=== PATIENT | female | born 1995 | race Caucasian/White ===

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

== ENCOUNTER 2017-06-30 14:42 | Emergency (ER) | payer OTHER ==
[~2017-06-30] VITALS: Ht 170.2 cm; Wt 102.1 kg
[~2017-06-30 14:42] MED LIST changes: +CIPRODEX OTIC7.5 ML OT; +MULTI-DAY VITA1 EACH PO; +NEXPLANON68 M1
[2017-06-30 15:14] LABS: ABSOLUTE BASOPHIL COUNT 0 /CUMM (0.0-0.2); ABSOLUTE EOSINOPHIL COUNT 0 /CUMM (0.0-0.7); ABSOLUTE GRANULOCYTE CT 4.1 /CUMM (1.4-6.5); ABSOLUTE LYMPH COUNT 0.5 /CUMM (1.2-3.4); ABSOLUTE MONOCYTE COUNT 0.4 /CUMM (0.10-0.60); BASOPHIL % 0.2 % (0.0-2.0); EOSINOPHIL % 0.1 % (0-5); GRANULOCYTE % 81.1 % (42.2-75.2); HEMATOCRIT 40.1 % (37-47); MEAN CORPUSCULAR HGB 29.6 PG (27.0-31.0); MEAN CORPUSCULAR HGB CONC 34.2 G/DL (33.0-37.0); MEAN CORPUSCULAR VOLUME 86.5 FL (81.0-99.0); MEAN PLATELET VOLUME 7.2 FL (7.4-10.4); PLATELET COUNT 207 /CUMM (130-400); RBC DISTRIBUTION WIDTH 13.5 % (11.5-14.5); RED BLOOD CELL CT 4.64 /CUMM (4.20-5.40)
--- NOTE | 2017-06-30 19:04 | ED GENERAL ADULT ---
History of Present Illness General Chief Complaint: General Adult Stated Complaint: RIGHT SIDE OF BODY PAIN, NKI Source: patient Exam Limitations: no limitations Vital Signs & Intake/Output Vital Signs & Intake/Output Vital Signs Date Time Temp Pulse Resp B/P B/P Pulse O2 O2 Flow FiO2 Mean Ox Delivery Rate 06/30 2120 55 18 111/67 98 Room Air 06/30 1852 Room Air 06/30 1850 98.9 61 17 117/56 99 Room Air 06/30 1459 99.2 111 18 157/98 98 Room Air Allergies Coded Allergies: azithromycin (HIVES 10/17/16) codeine (HIVES 10/17/16) shellfish derived (HIVES, ITCHY, TINGLING IN MOUTH 06/30/17) Reconcile Medications Naproxen (Naprosyn) 500 MG TABLET 1 TAB PO BID PRN pain take with food Norethindrone-E.estradiol-Iron (Lo Loestrin Fe 1-10 Tablet) 1MG-10(24) TABLET 1 TAB PO DAILY CONTROL (Reported) Ondansetron (Zofran Odt) 4 MG TAB.RAPDIS 1 TAB SL TID PRN nausea Triage Note: 21 YO FEMALE TO TRIAGE C/O R SIDED LOWER ABD PAIN AND CHEST PAIN THAT HAS BEEN ON/OFF SINCE LAST PM. +NAUSEA. Triage Nurses Notes Reviewed? yes Onset: Abrupt Duration: day(s): (2), changing over time, continues in ED Timing: single episode today Injury Environment: home Severity: mild, moderate Severity Numbers: 6 No Modifying Factors: none Associated Symptoms: chest pain LMP (ages 10-50): unknown : No Patient currently breastfeeds: No HPI: 21-year-old female past medical history of asthma presents for evaluation of chest pain, shortness of breath and abdominal pain. Patient reports she first noticed the symptoms yesterday. The pain is located in the right side of her chest and right side of her abdomen and does not radiate. She reports some mild shortness of breath. She rates the pain as a 6 out of 10 and describes it as sharp. It is been intermittent today coming and going. She is unsure what brings it on. She's never had this before. She also reports associated nausea. No diarrhea back pain fever urinary symptoms vaginal discharge or any other symptoms. No recent surgery or trauma. She does take control. No smoking or drug use. (Taye Orta) Past History Travel History Traveled to [place] past 21 day No Medical History Any Pertinent Medical History? see below for history Neurological: NONE EENT: NONE Cardiovascular: NONE Respiratory: asthma Gastrointestinal: NONE Hepatic: NONE Renal: uti Musculoskeletal: NONE Psychiatric: NONE Endocrine: NONE Surgical History Surgical History: none Psychosocial History What is your primary language Ukrainian Tobacco Use: Never used Family History Hx Contributory? No (Taye Orta) Review of Systems Review of Systems Constitutional: Reports: no symptoms. EENTM: Reports: no symptoms. Respiratory: Reports: see HPI, short of breath. Cardiovascular: Reports: see HPI, chest pain. GI: Reports: see HPI, abdominal pain. Genitourinary: Reports: no symptoms. Musculoskeletal: Reports: no symptoms. Skin: Reports: no symptoms. Neurological/Psychological: Reports: no symptoms. Hematologic/Endocrine: Reports: no symptoms. Immunologic/Allergic: Reports: no symptoms. All Other Systems: Reviewed and Negative (Taye Orta) Physical Exam Physical Exam General Appearance: well developed/nourished, no apparent distress, alert, awake Head: atraumatic, normal appearance Eyes: Bilateral: normal appearance, PERRL, EOMI. Ears, Nose, Throat: normal pharynx, normal ENT inspection, hearing grossly normal Neck: normal inspection, supple, full range of motion Respiratory: normal breath sounds, chest non-tender, no respiratory distress, lungs clear Cardiovascular: regular rate/rhythm, normal peripheral pulses Peripheral Pulses: 2+ radial (R), 2+ radial (L) Gastrointestinal: normal bowel sounds, soft, no organomegaly, tenderness (RLQ TENDERNESS ) Back: normal inspection, no vertebral tenderness Extremities: normal inspection, normal range of motion, no edema Neurologic/Psych: no motor/sensory deficits, awake, alert, oriented x 3 Skin: intact, normal color, warm/dry Core Measures ACS in differential dx? No CVA/TIA Diagnosis: No Sepsis Present: No Sepsis Focused Exam Completed? No (Taye Orta) Progress Differential Diagnoses I considered the following diagnoses in my evaluation of the patient: [Pneumonia , pulmonary embolism, appendicitis, UTI, cholecystitis, muscle strain, arrhythmia] Plan of Care: Orders Procedure Date/time Status Add-on Test (ER Only) 06/30 190 Active Add-on Test (ER Only) 01/17 1840 Active URINE 01/17 1840 Complete URINALYSIS 06/30 1840 Complete TROPONIN LEVEL 06/30 1505 Complete LIPASE 06/30 1505 Complete D-DIMER 06/30 1505 Complete COMPREHENSIVE METABOLIC PANEL 06/30 1500 Complete CBC WITHOUT DIFFERENTIAL 06/30 1500 Complete EKG 06/30 1500 Active Laboratory Tests 06/30/17 1505: Anion Gap 16, Estimated GFR > 60, BUN/Creatinine Ratio 17.5, Glucose 90, Calcium 9.3, Total Bilirubin 0.5, AST 23, ALT 37, Alkaline Phosphatase 79, Troponin I < 0.01, Total Protein 7.6, Albumin 4.3, Globulin 3.3, Albumin/Globulin Ratio 1.3, Lipase 77, D-Dimer High Sensitivty 518 H, CBC w Diff NO MAN DIFF REQ, RBC 4.64, MCV 86.5, MCH 29.6, RDW 13.5, MPV 7.2 L, Gran % 81.1 H, Lymphocytes % 10.9 L, Monocytes % 7.7, Eosinophils % 0.1, Basophils % 0.2, Absolute Granulocytes 4.1, Absolute Lymphocytes 0.5 L, Absolute Monocytes 0.4, Absolute Eosinophils 0, Absolute Basophils 0, PUBS MCHC 34.2 06/30/17 1144: Urinalysis LIGHT H, Urine Color YEL, Urine Clarity HAZY H, Urine pH 6.0, Ur Specific [place] 1.020, Urine Protein NEG, Urine Ketones NEG, Urine Nitrite NEG, Urine Bilirubin NEG, Urine Urobilinogen 0.2, Ur Leukocyte Esterase NEG, Ur Microscopic SEDIMENT EXAMINED, Urine RBC 1-3, Urine WBC 1-3 H, Ur Epithelial Cells MOD H, Urine Bacteria MOD H, Urine Mucus MOD H, Urine Hemoglobin TRACE- INTACT, Urine Glucose NEG, Urine Test NEGATIVE Patient seen and evaluated. She is nontoxic-appearing. She is tachycardic and on control she cannot be ruled out for PE based on clinical criteria. Her EKG is normal sinus rhythm troponin is negative her d-dimer is slightly elevated. CTA of the chest and pelvis is negative for any acute findings. Patient is feeling better after Toradol and Zofran. She is able tolerate fluids here. Remaining blood work is unremarkable. Advised patient to rest and plenty of fluids naproxen Tylenol as needed for pain. Zofran for nausea. Follow-up with primary care doctor as soon as possible. Patient is nontoxic-appearing and agrees the plan. Diagnostic Imaging: Viewed by Me: CT Scan. Discussed w/RAD: CT Scan. Radiology Impression: PATIENT: MOISES ADKINS PRESENT AGE: 21 PATIENT ACCOUNT NO: [id number] : 97 LOCATION: [facility] ORDERING PHYSICIAN: Taye MARCOS SERVICE DATE: 06/30/17 EXAM TYPE: CAT - CT ABD & PELVIS ANGIOGRAM; CTA CHEST-PULMONARY EMBOLISM EXAMINATION: 1. CTA chest: 2. CT ABDOMEN AND PELVIS WITH CONTRAST CLINICAL INFORMATION: Chest pain. Shortness of breath. Right lower quadrant pain. COMPARISON: None. TECHNIQUE: A noncontrast localizer was performed, followed by the administration of 115 mL Optiray [address] of the chest was then performed. Coronal and sagittal reformatted and 3-D technique MIP images of the chest were completed at the CT scanner and reviewed on the PACS workstation. No adverse effects were reported. Images were then performed through the abdomen and pelvis. Coronal and sagittal reformatted images performed at CT scanner by technologist. DLP: 1024.75 mGy-cm. FINDINGS: 1. CTA CHEST; VASCULAR: The main pulmonary artery, secondary and tertiary branches of the pulmonary artery are normally opacified with no evidence of pulmonary embolism. The aorta and great vessels are unremarkable. MEDIASTINUM: No mediastinal mass. No significant lymphadenopathy. There is no pericardial effusion. LUNGS: The lungs are clear. No nodule or infiltrate. Central bronchial airways open. FLUID: There is no pericardial effusion. There is no pleural effusion. AXILLA: No significant lymphadenopathy. 2. CT SCAN ABDOMEN PELVIS: LIVER, GALLBLADDER, AND BILIARY TREE : The liver is normal in size, shape, and attenuation. No focal hepatic lesion or biliary ductal dilatation is present. The gallbladder is unremarkable with no evidence of radiopaque gallstones, gallbladder wall thickening, or obvious pericholecystic inflammatory changes. PANCREAS: Unremarkable. SPLEEN: Unremarkable. ADRENAL GLANDS: Unremarkable. KIDNEYS AND URETERS: The kidneys are normal in size, shape, and attenuation. No hydronephrosis, hydroureter, or calculi seen. No perinephric stranding. BLADDER: Unremarkable. GASTROINTESTINAL TRACT: The small and large bowel are unremarkable. The appendix is unremarkable. ABDOMINAL WALL: No significant hernia is appreciated. LYMPH NODES: Normal. VASCULAR: Unremarkable. PELVIC VISCERA: Unremarkable. OSSEOUS STRUCTURES: Unremarkable. IMPRESSION: 1. Normal CT chest. No evidence of pulmonary embolism. 2. Normal CT abdomen and pelvis. Normal appendix. No acute changes abdomen or pelvis. DICTATED BY: René Merrill MD DATE/TIME DICTATED:06/30/172041 PARQUET FLOOR LAYER:REED DATE/TIME TRANSCRIBED:06/30/172041 CONFIDENTIAL, DO NOT COPY WITHOUT APPROPRIATE AUTHORIZATION. Initial ED EKG: normal sinus rhythm, no ST T wave changes (Taye Orta) Departure Departure Disposition: HOME OR SELF CARE Condition: Stable Clinical Impression Primary Impression: Chest pain Qualifiers: Chest pain type: unspecified Qualified Code: R07.9 - Chest pain, unspecified Secondary Impressions: Abdominal pain Qualifiers: Abdominal location: lower abdomen, unspecified Qualified Code: R10.30 - Lower abdominal pain, unspecified Referrals: Unknown (PCP/Family) Additional Instructions: Rested drink plenty of fluids. Naproxen every 12 hours as needed for pain. Zofran for nausea. Make a follow-up with primary care doctor. Monitor symptoms return with any concerns. Departure Forms: Customer Survey General Discharge Information Prescriptions: Current Visit Scripts Naproxen (Naprosyn) 1 TAB PO BID PRN pain #30 TAB take with food Ondansetron (Zofran Odt) 1 TAB SL TID PRN nausea #10 TAB (Taye Orta) PA/DESIZING MACHINE OPERATOR HEAD END Co-Sign Statement Statement: ED Attending supervision documentation- [] I saw and evaluated the patient. I have also reviewed all the pertinent lab results and diagnostic results. I agree with the findings and the plan of care as documented in the PA's/DESIZING MACHINE OPERATOR HEAD END's documentation. [X] I have reviewed the ED Record and agree with the PA's/DESIZING MACHINE OPERATOR HEAD END's documentation. [] Additions or exceptions (if any) to the PAs/DESIZING MACHINE OPERATOR HEAD END's note and plan are summarized below: [] (Chalino RANDALL,Mariluz) Critical Care Note Critical Care Note Critical Care Time: non-applicable (Taye Orta)
[2017-06-30] MEDS ORDERED: LO LOESTRIN FE1 EACH PO (20:37)
--- NOTE | 2017-06-30 20:53 | CT SCAN REPORT ---
EXAMINATION: 1. CTA chest: 2. CT ABDOMEN AND PELVIS WITH CONTRAST CLINICAL INFORMATION: Chest pain. Shortness of breath. Right lower quadrant pain. COMPARISON: None. TECHNIQUE: A noncontrast localizer was performed, followed by the administration of 115 mL Optiray [address] of the chest was then performed. Coronal and sagittal reformatted and 3-D technique MIP images of the chest were completed at the CT scanner and reviewed on the PACS workstation. No adverse effects were reported. Images were then performed through the abdomen and pelvis. Coronal and sagittal reformatted images performed at CT scanner by technologist. DLP: 1024.75 mGy-cm. FINDINGS: 1. CTA CHEST; VASCULAR: The main pulmonary artery, secondary and tertiary branches of the pulmonary artery are normally opacified with no evidence of pulmonary embolism. The aorta and great vessels are unremarkable. MEDIASTINUM: No mediastinal mass. No significant lymphadenopathy. There is no pericardial effusion. LUNGS: The lungs are clear. No nodule or infiltrate. Central bronchial airways open. FLUID: There is no pericardial effusion. There is no pleural effusion. AXILLA: No significant lymphadenopathy. 2. CT SCAN ABDOMEN PELVIS: LIVER, GALLBLADDER, AND BILIARY TREE: The liver is normal in size, shape, and attenuation. No focal hepatic lesion or biliary ductal dilatation is present. The gallbladder is unremarkable with no evidence of radiopaque gallstones, gallbladder wall thickening, or obvious pericholecystic inflammatory changes. PANCREAS: Unremarkable. SPLEEN: Unremarkable. ADRENAL GLANDS: Unremarkable. KIDNEYS AND URETERS: The kidneys are normal in size, shape, and attenuation. No hydronephrosis, hydroureter, or calculi seen. No perinephric stranding. BLADDER: Unremarkable. GASTROINTESTINAL TRACT: The small and large bowel are unremarkable. The appendix is unremarkable. ABDOMINAL WALL: No significant hernia is appreciated. LYMPH NODES: Normal. VASCULAR: Unremarkable. PELVIC VISCERA: Unremarkable. OSSEOUS STRUCTURES: Unremarkable. IMPRESSION: 1. Normal CT chest. No evidence of pulmonary embolism. 2. Normal CT abdomen and pelvis. Normal appendix. No acute changes abdomen or pelvis.
[2017-06-30] MEDS ORDERED: NAPROSYN500 M1 PO (21:14)
[2017-06-30] MEDS ORDERED: ZOFRAN ODT4 M1 SL (21:14)
[2017-06-30 21:20] VITALS: BP 111/67
== END 2017-06-30 21:41 ==
LOC: ERH 14:42
PROVIDERS: Emergency Medicine
DX: R07.9 Chest pain, unspecified (principal); R10.31 Right lower quadrant pain; R06.02 Shortness of breath
CPT/HCPCS: 74174; 81001; 81025; 93005; 93010; 96374; 96375; J1885; J2405

== ENCOUNTER 2017-07-24 23:32 | Emergency (ER) | payer OTHER ==
[~2017-07-24] VITALS: Ht 170.2 cm; Wt 98.0 kg
[~2017-07-24 23:32] MED LIST changes: +LO LOESTRIN FE1 EACH PO; +NAPROSYN500 M1 PO; +ZOFRAN ODT4 M1 SL
--- NOTE | 2017-07-25 00:21 | ED UPPER/LOWER EXTREMITY COMPL ---
History of Present Illness General Chief Complaint: Lower Extremity Problems Stated Complaint: RIGHT KNEE PAIN Source: patient Exam Limitations: no limitations Vital Signs & Intake/Output Vital Signs & Intake/Output Vital Signs Date Time Temp Pulse Resp B/P B/P Pulse O2 O2 Flow FiO2 Mean Ox Delivery Rate 07/25 0045 Room Air 07/24 2359 97.2 94 20 141/87 96 Room Air ED Intake and Output 07/25 0000 07/24 1200 Intake Total Output Total Balance Patient 216 lb Weight Weight Reported by Patient Measurement Method Allergies Coded Allergies: azithromycin (HIVES 10/17/16) codeine (HIVES 10/17/16) shellfish derived (HIVES, ITCHY, TINGLING IN MOUTH 06/30/17) Triage Note: PT REPORTS "KNEE CAP IS FACING WRONG WAY" PT WEARING JEANS IN TRIAGE, NO OBVIOUS DEFORMITY NOTED UNDER BRACE PT IS WEARING. PT REPORTS "ALWAYS PROBLEMS WITH KNEE, COMING OUT OF PLACE" AMBULATES IN TRIAGE WITH SLOW STEADY GAIT. LMP CURRENT. URINE OBTAINED AND SENT FROM TRIAGE. Triage Nurses Notes Reviewed? yes Onset: Gradual Duration: getting worse Timing: recent history Severity: severe Severity Numbers: 7 : No Patient currently breastfeeds: No HPI: Patient is a 21-year-old female with a past medical history of chronic right knee pain and instability issues where she states that for many years she's had right knee pain and which she states that it gives out quite often where she states that yesterday she was working a 10 hour shifts with prolonged standing where she states that her right knee pain is worse. Patient denies any mechanism injury or trauma Patient took naproxen earlier today patient denies any hip or ankle pain. (Fredy MARCOS,Rashi) Reconcile Medications Naproxen (Naprosyn) 500 MG TABLET 1 TAB PO BID PRN pain take with food Norethindrone-E.estradiol-Iron (Lo Loestrin Fe 1-10 Tablet) 1MG-10(24) TABLET 1 TAB PO DAILY CONTROL (Reported) (Karin RANDALL,Yong) Past History Travel History Traveled to [place] past 21 day No Medical History Any Pertinent Medical History? see below for history Neurological: NONE EENT: NONE Cardiovascular: NONE Respiratory: asthma Gastrointestinal: NONE Hepatic: NONE Renal: uti Musculoskeletal: NONE Psychiatric: NONE Endocrine: NONE Surgical History Surgical History: none Psychosocial History What is your primary language Italian Tobacco Use: Quit >30 days ago Family History Hx Contributory? No (Rashi Watts) Review of Systems Review of Systems Constitutional: Reports: no symptoms. EENTM: Reports: no symptoms. Respiratory: Reports: no symptoms. Cardiovascular: Reports: no symptoms. Gastrointestinal/Abdominal: Reports: no symptoms. Genitourinary: Reports: no symptoms. Musculoskeletal: Reports: see HPI, joint pain. Skin: Reports: no symptoms. Neurological/Psychological: Reports: no symptoms. Hematologic/Endocrine: Reports: no symptoms. Immunological: Reports: no symptoms. All Other Systems: Reviewed and Negative (Rashi Watts) Physical Exam Physical Exam General Appearance: no apparent distress, alert, comfortable Head: atraumatic Eyes: Bilateral: normal appearance. Ears, Nose, Throat: hearing grossly normal Neck: normal inspection Cardiovascular/Respiratory: no respiratory distress Neurologic/Tendon: normal sensation, normal motor functions, normal tendon functions, responds to pain, no evidence tendon injury, no pulse deficit Skin: intact, normal color, warm/dry Comments: Right hip normal inspection straight leg raise performed Right and knee mild generalized swelling and medial joint line point tenderness and generalized patella point tenderness full active range of motion noted with mild pain No erythema Valgus stress tests shows no laxity but has pain negative anterior drawer test negative posterior drawer chest negative varus stress test (Rashi Watts) Progress Differential Diagnosis: arterial insufficiency, compartment syndrome, contusion, dislocation, DVT, fracture, gout, septic arthritis, sprain, tendon injury Plan of Care: Orders Procedure Date/time Status Durable Medical Equipment 07/25 0043 Active XRY-KNEE,R,AP,LAT,OBL,SUNRISE 07/25 0023 Active URINE 07/24 2338 Complete Laboratory Tests 07/24/17 2359: Urine Test NEGATIVE Patient denies any mechanism injury or trauma x-rays will be obtained X-rays currently pending discussed handoff with (Rashi Watts) Departure Departure Disposition: HOME OR SELF CARE Condition: Stable Clinical Impression Primary Impression: Right knee pain Referrals: Unknown (PCP/Family) Ivan Duncan MD Additional Instructions: As discussed begin to ice the area directly 20 minutes every 2 hours begin using an Hussein wrap provided to the emergency room for swelling begin using that knee immobilizer for support Follow-up with your primary care doctor as you have an appointment for further evaluation and treatment follow-up next week with orthopedic Dr. Duncan for further evaluation treatment, if symptoms worsen return to emergency room, continue [id number] naproxen for your inflammation and pain as directed Departure Forms: Customer Survey General Discharge Information (Rashi Watts) PA/FITTER/WELDER Co-Sign Statement Statement: ED Attending supervision documentation- I saw and evaluated the patient. I have also reviewed all the pertinent lab results and diagnostic results. I agree with the findings and the plan of care as documented in the PA's/FITTER/WELDER's documentation. x I have reviewed the ED Record and agree with the PA's/FITTER/WELDER's documentation. [] Additions or exceptions (if any) to the PAs/FITTER/WELDER's note and plan are summarized below: [] (Karin RANDALL,Yong)
--- NOTE | 2017-07-25 02:33 | RADIOLOGY REPORT ---
EXAMINATION: XR KNEE, RIGHT CLINICAL INFORMATION: Right patella pain COMPARISON: None TECHNIQUE: Four views of the right knee. FINDINGS: Osseous alignment is anatomic. Joint spaces are preserved. No acute fracture is seen. No significant effusion. IMPRESSION: No acute findings.
[2017-07-25 02:40] VITALS: BP 133/79
== END 2017-07-25 03:07 ==
LOC: ERH 23:32
DX: M25.561 Pain in right knee (principal)
CPT/HCPCS: 73564-RT; 81025